=== PATIENT | male | born 1960 | race African-American/Black ===

== ENCOUNTER 2018-11-18 20:34 | Inpatient (IN) | payer MEDICARE, OTHER ==
[~2018-11-18 20:34] MED LIST: BENZ1TAB70 PO; BUPR150T2 PO; ENAL10TA18 PO; FLUP5 PO; METF-444 PO; NIAC500T76 PO; OMEP20CA10 PO; PIOG15TA6 PO; RISP3TAB6 PO; TIOT185 IH; VENTOLIN
[2018-11-19 01:30] VITALS: BP 104/67
[2018-11-19] MEDS ORDERED: PNEUMOCOCCAL VACCINE POLYVALENT 0.5 ML VIAL [PPSV23] IM ONE (03:15)
[2018-11-19] MEDS ORDERED: DOCUSATE SODIUM 100 MG CAPSULE PO PRN (07:00)
[2018-11-19] MEDS ORDERED: CloNIDine HCL 0.1 MG TABLET PO PRN (07:00)
[2018-11-19] MEDS ORDERED: ALBUTEROL SULFATE HFA 90 MCG/PUFF 8 GM INHALER IH PRN (07:00)
[2018-11-19] MEDS ORDERED: GuaiFENesin/D-METHORPHAN [SUGAR-FREE] 200-20MG/10 ML SYRUP UDCUP PO PRN (07:00)
[2018-11-19] MEDS ORDERED: MAGNESIUM HYDROXIDE SUSPENSION 30 ML UDCUP PO PRN (07:00)
[2018-11-19] MEDS ORDERED: MAG HYDROX/AL HYDROX/SIMETH ES 30 ML SUSPENSION UDCUP PO PRN (07:00)
[2018-11-19] MEDS ORDERED: IBUPROFEN 400 MG TABLET PO PRN (07:00)
[2018-11-19] MEDS ORDERED: PETROLATUM,WHITE 28 GM JELLY TP PRN (07:00)
[2018-11-19] MEDS ORDERED: ACETAMINOPHEN 325 MG TABLET PO PRN (07:00)
[2018-11-19] MEDS ORDERED: NICOTINE 14 MG/24 HOUR PATCH TD PRN (07:00)
[2018-11-19] MEDS ORDERED: ONDANSETRON HCL 4 MG TABLET PO PRN (07:00)
[2018-11-19] MEDS ORDERED: LOPERAMIDE HCL 2 MG CAPSULE PO PRN (07:00)
[2018-11-19 08:15] VITALS: BP 122/83
[2018-11-19] MEDS: TIOTROPIUM BROMIDE 18 MCG/INH HANDIHALER [5] IH SCH (09:00)
[2018-11-19] MEDS: AmLODIPine BESYLATE 10 MG TABLET PO SCH (09:42)
[2018-11-19] MEDS ORDERED: BuPROPion HCL XL 150 MG ER TABLET PO ONE (11:45)
[2018-11-19 16:44] VITALS: BP 101/63
[2018-11-19] MEDS: BENZTROPINE MESYLATE 1 MG TABLET PO SCH (17:01)
[2018-11-19] MEDS: MetFORMIN HCL 500 MG TABLET PO SCH (17:01)
[2018-11-19] MEDS: RisperiDONE 3 MG TABLET PO SCH (17:01)
[2018-11-19] MEDS: PIOGLITAZONE HCL 15 MG TABLET PO SCH (20:38)
[2018-11-19] MEDS: OMEPRAZOLE 20 MG CAPSULE PO SCH (20:39)
[2018-11-20 01:23] VITALS: BP 101/74
[2018-11-20 06:39] LABS: GLUCOMETER DEV NAME(LOC) BV3N.; GLUCOSE,POINT OF CARE 106 MG/DL (70-110)
[2018-11-20] MEDS: MetFORMIN HCL 500 MG TABLET PO SCH ×2 (06:52→16:43)
[2018-11-20 08:09] VITALS: BP 129/82
[2018-11-20 08:33] LABS: BASOPHILS % (AUTO) 0.7 % (0.0-2.0); HEMATOCRIT 53.4 % (41-53); HEMOGLOBIN 18.4 g/dL (13.5-17.5); LYMPHOCYTES # (AUTO) 2.5 K/uL (1.0-4.8); LYMPHOCYTES % (AUTO) 46.2 % (22.0-44.0); MEAN CORPUSCULAR HEMOGLOBIN 31.2 pg (26.0-34.0); MEAN CORPUSCULAR HGB CONC 34.5 G/dL (31.0-37.0); MEAN CORPUSCULAR VOLUME 90 fL (80-100); MONOCYTES # (AUTO) 0.6 K/uL (0.1-1.0); MONOCYTES % (AUTO) 10.9 % (2.0-9.0); NEUTROPHILS # (AUTO) 2.1 K/uL (1.8-7.7); NEUTROPHILS % (AUTO) 40.2 % (40.0-70.0); PLATELET COUNT (AUTO) 216 K/uL (150-450); RED BLOOD CELL COUNT(AUTO) 5.91 MIL/uL (4.50-5.90); RED CELL DISTRIBUTION WIDTH 13.2 % (11.5-14.5)
[2018-11-20 08:55] LABS: HEMOGLOBIN A1C 6.9 % (4.5-6.2)
[2018-11-20] MEDS: BuPROPion HCL XL 150 MG ER TABLET PO SCH (09:01)
[2018-11-20] MEDS: AmLODIPine BESYLATE 10 MG TABLET PO SCH (09:01)
[2018-11-20] MEDS: BENZTROPINE MESYLATE 1 MG TABLET PO SCH ×2 (09:01→16:43)
[2018-11-20] MEDS: TIOTROPIUM BROMIDE 18 MCG/INH HANDIHALER [5] IH SCH (09:02)
[2018-11-20] MEDS: RisperiDONE 3 MG TABLET PO SCH ×2 (09:02→16:43)
[2018-11-20 09:09] LABS: ALANINE AMINOTRANSFERASE 43 U/L (12-78); ALBUMIN 3.7 g/dL (3.4-5.0); ALKALINE PHOSPHATASE 60 U/L (46-116); ANION GAP 9 mmol/L (8-16); ASPARTATE AMINOTRANSFERASE 37 U/L (15-37); BILIRUBIN,TOTAL 0.5 mg/dL (0.1-1.0); CALCIUM, TOTAL 9.3 mg/dL (8.8-10.5); CARBON DIOXIDE 26 mmol/L (22-29); CHLORIDE 103 mmol/L (98-107); CHOL/HDL RATIO 4.1 (4.2-7.3); CHOLESTEROL 147 mg/dL (131-200); CREATININE 0.93 mg/dL (0.60-1.30); FREE T4 (FREE THYROXINE) 1.24 ng/dL (0.76-1.46); GLOMERULAR FILTR. RATE CALC > 60 mL/min (>60); GLUCOSE,RANDOM 99 mg/dL (70-110); HDL CHOLESTEROL 36 mg/dL (40-60); LDL CHOL (CALC.) 81 mg/dL (0-130); POTASSIUM 4.4 mmol/L (3.5-5.1); SODIUM SERUM 138 mmol/L (136-145); THYROID STIMULATING HORMONE 1.55 uIU/mL (0.36-3.74); TOTAL PROTEIN, SERUM 7.4 g/dL (6.4-8.2); TRIGLYCERIDES 151 mg/dL (15-150); UREA NITROGEN, BLOOD 13 mg/dL (7-18)
[2018-11-20 16:10] VITALS: BP 105/67
[2018-11-20] MEDS: HALOPERIDOL 5 MG TABLET PO PRN (16:44)
[2018-11-20] MEDS: LORazepam 2 MG TABLET PO PRN (16:44)
[2018-11-20] MEDS: PIOGLITAZONE HCL 15 MG TABLET PO SCH (21:00)
[2018-11-20] MEDS: ZOLPIDEM TARTRATE 10 MG TABLET PO PRN (21:03)
[2018-11-20] MEDS: OMEPRAZOLE 20 MG CAPSULE PO SCH (21:03)
[2018-11-21 05:29] VITALS: BP 112/75
[2018-11-21] MEDS: MetFORMIN HCL 500 MG TABLET PO SCH ×2 (06:36→16:21)
[2018-11-21] MEDS: TIOTROPIUM BROMIDE 18 MCG/INH HANDIHALER [5] IH SCH (08:26)
[2018-11-21] MEDS: RisperiDONE 3 MG TABLET PO SCH ×2 (08:26→16:21)
[2018-11-21] MEDS: BuPROPion HCL XL 150 MG ER TABLET PO SCH (08:26)
[2018-11-21] MEDS: BENZTROPINE MESYLATE 1 MG TABLET PO SCH ×2 (08:26→16:21)
[2018-11-21] MEDS: AmLODIPine BESYLATE 10 MG TABLET PO SCH (08:26)
[2018-11-21] MEDS: LORazepam 2 MG TABLET PO PRN (08:29)
[2018-11-21 08:31] VITALS: BP 120/85
[2018-11-21 16:28] VITALS: BP 110/71
[2018-11-21] MEDS: OMEPRAZOLE 20 MG CAPSULE PO SCH (20:33)
[2018-11-21] MEDS: PIOGLITAZONE HCL 15 MG TABLET PO SCH (20:33)
[2018-11-22 02:12] VITALS: BP 125/76
[2018-11-22] MEDS: MetFORMIN HCL 500 MG TABLET PO SCH ×2 (06:21→17:06)
[2018-11-22 08:05] LABS: BASOPHILS % (AUTO) 0.8 % (0.0-2.0); EOSINOPHILS % (AUTO) 1.5 % (1.0-6.0); HEMATOCRIT 51.9 % (41-53); HEMOGLOBIN 18.1 g/dL (13.5-17.5); LYMPHOCYTES % (AUTO) 39.5 % (22.0-44.0); MEAN CORPUSCULAR HEMOGLOBIN 31.2 pg (26.0-34.0); MEAN CORPUSCULAR HGB CONC 34.9 G/dL (31.0-37.0); MEAN CORPUSCULAR VOLUME 89 fL (80-100); MONOCYTES # (AUTO) 0.4 K/uL (0.1-1.0); MONOCYTES % (AUTO) 8.6 % (2.0-9.0); NEUTROPHILS # (AUTO) 2.5 K/uL (1.8-7.7); NEUTROPHILS % (AUTO) 49.6 % (40.0-70.0); PLATELET COUNT (AUTO) 243 K/uL (150-450); RED CELL DISTRIBUTION WIDTH 13.3 % (11.5-14.5)
[2018-11-22 08:29] VITALS: BP 129/78
[2018-11-22] MEDS: TIOTROPIUM BROMIDE 18 MCG/INH HANDIHALER [5] IH SCH (08:56)
[2018-11-22] MEDS: RisperiDONE 3 MG TABLET PO SCH ×2 (08:56→17:06)
[2018-11-22] MEDS: BENZTROPINE MESYLATE 1 MG TABLET PO SCH ×2 (08:57→17:06)
[2018-11-22] MEDS: BuPROPion HCL XL 150 MG ER TABLET PO SCH (08:57)
[2018-11-22] MEDS: AmLODIPine BESYLATE 10 MG TABLET PO SCH (08:57)
[2018-11-22 16:39] VITALS: BP 109/70
[2018-11-22] MEDS: HALOPERIDOL 5 MG TABLET PO PRN (17:05)
[2018-11-22] MEDS: LORazepam 2 MG TABLET PO PRN (17:06)
[2018-11-22] MEDS: PIOGLITAZONE HCL 15 MG TABLET PO SCH (20:20)
[2018-11-22] MEDS: ZOLPIDEM TARTRATE 10 MG TABLET PO PRN (20:20)
[2018-11-22] MEDS: OMEPRAZOLE 20 MG CAPSULE PO SCH (20:20)
[2018-11-23 06:17] VITALS: BP 129/80
[2018-11-23] MEDS: MetFORMIN HCL 500 MG TABLET PO SCH ×2 (06:30→16:41)
[2018-11-23 08:14] VITALS: BP 117/83
[2018-11-23] MEDS: AmLODIPine BESYLATE 10 MG TABLET PO SCH (08:23)
[2018-11-23] MEDS: BuPROPion HCL XL 150 MG ER TABLET PO SCH (08:23)
[2018-11-23] MEDS: RisperiDONE 3 MG TABLET PO SCH ×2 (08:23→16:41)
[2018-11-23] MEDS: BENZTROPINE MESYLATE 1 MG TABLET PO SCH ×2 (08:23→16:41)
[2018-11-23] MEDS: TIOTROPIUM BROMIDE 18 MCG/INH HANDIHALER [5] IH SCH (08:24)
[2018-11-23 16:00] VITALS: BP 114/80
[2018-11-23] MEDS: LORazepam 2 MG TABLET PO PRN (16:41)
[2018-11-23] MEDS: HALOPERIDOL 5 MG TABLET PO PRN (16:41)
[2018-11-23] MEDS: PIOGLITAZONE HCL 15 MG TABLET PO SCH (20:28)
[2018-11-23] MEDS: ZOLPIDEM TARTRATE 10 MG TABLET PO PRN (20:28)
[2018-11-23] MEDS: OMEPRAZOLE 20 MG CAPSULE PO SCH (20:28)
[2018-11-24 06:03] VITALS: BP 116/73
[2018-11-24] MEDS: MetFORMIN HCL 500 MG TABLET PO SCH ×2 (06:23→16:25)
[2018-11-24 08:13] LABS: BASOPHILS % (AUTO) 0.5 % (0.0-2.0); EOSINOPHILS % (AUTO) 1.7 % (1.0-6.0); HEMATOCRIT 53.7 % (41-53); HEMOGLOBIN 18.2 g/dL (13.5-17.5); LYMPHOCYTES % (AUTO) 39.7 % (22.0-44.0); MEAN CORPUSCULAR HEMOGLOBIN 30.8 pg (26.0-34.0); MEAN CORPUSCULAR VOLUME 91 fL (80-100); MONOCYTES # (AUTO) 0.6 K/uL (0.1-1.0); MONOCYTES % (AUTO) 12.6 % (2.0-9.0); NEUTROPHILS # (AUTO) 2.3 K/uL (1.8-7.7); NEUTROPHILS % (AUTO) 45.5 % (40.0-70.0); PLATELET COUNT (AUTO) 237 K/uL (150-450); RED BLOOD CELL COUNT(AUTO) 5.93 MIL/uL (4.50-5.90); RED CELL DISTRIBUTION WIDTH 13.2 % (11.5-14.5)
[2018-11-24 08:18] VITALS: BP 133/77
[2018-11-24 08:24] LABS: APPEARANCE,URINE CLEAR (CLEAR); BILIRUBIN,URINE NEGATIVE (NEGATIVE); GLUCOSE, URINE (UA) NEGATIVE (NEGATIVE); KETONES,URINE NEGATIVE (NEGATIVE); LEUKOCYTE ESTERASE ,URINE NEGATIVE (NEGATIVE); NITRATE,URINE NEGATIVE (NEGATIVE); OCCULT BLOOD,URINE NEGATIVE (NEGATIVE); PROTEIN,URINE NEGATIVE (NEGATIVE); UROBILINOGEN,URINE 0.2 mg/dL (<=1.0)
[2018-11-24] MEDS: TIOTROPIUM BROMIDE 18 MCG/INH HANDIHALER [5] IH SCH (08:25)
[2018-11-24] MEDS: BENZTROPINE MESYLATE 1 MG TABLET PO SCH ×2 (08:26→16:25)
[2018-11-24] MEDS: BuPROPion HCL XL 150 MG ER TABLET PO SCH (08:26)
[2018-11-24] MEDS: RisperiDONE 3 MG TABLET PO SCH ×2 (08:26→16:25)
[2018-11-24] MEDS: AmLODIPine BESYLATE 10 MG TABLET PO SCH (08:26)
[2018-11-24 08:34] LABS: ALANINE AMINOTRANSFERASE 50 U/L (12-78); ALBUMIN 3.7 g/dL (3.4-5.0); ALKALINE PHOSPHATASE 66 U/L (46-116); ANION GAP 8 mmol/L (8-16); ASPARTATE AMINOTRANSFERASE 27 U/L (15-37); BILIRUBIN,TOTAL 0.5 mg/dL (0.1-1.0); CALCIUM, TOTAL 9.2 mg/dL (8.8-10.5); CARBON DIOXIDE 27 mmol/L (22-29); CHLORIDE 103 mmol/L (98-107); CREATININE 0.98 mg/dL (0.60-1.30); GLOMERULAR FILTR. RATE CALC > 60 mL/min (>60); GLUCOSE,RANDOM 105 mg/dL (70-110); POTASSIUM 4.7 mmol/L (3.5-5.1); SODIUM SERUM 138 mmol/L (136-145); UREA NITROGEN, BLOOD 15 mg/dL (7-18)
[2018-11-24 16:00] VITALS: BP 118/70
[2018-11-24] MEDS: LORazepam 2 MG TABLET PO PRN (16:25)
[2018-11-24] MEDS: DIVALPROEX SODIUM 500 MG ER TABLET PO SCH (16:25)
[2018-11-24] MEDS: PIOGLITAZONE HCL 15 MG TABLET PO SCH (20:27)
[2018-11-24] MEDS: OMEPRAZOLE 20 MG CAPSULE PO SCH (20:27)
[2018-11-24] MEDS: ZOLPIDEM TARTRATE 10 MG TABLET PO PRN (20:27)
[2018-11-25 05:32] VITALS: BP 108/75
[2018-11-25] MEDS: MetFORMIN HCL 500 MG TABLET PO SCH ×2 (06:53→16:26)
[2018-11-25 08:17] VITALS: BP 122/67
[2018-11-25] MEDS: AmLODIPine BESYLATE 10 MG TABLET PO SCH (08:51)
[2018-11-25] MEDS: BENZTROPINE MESYLATE 1 MG TABLET PO SCH ×2 (08:51→16:26)
[2018-11-25] MEDS: RisperiDONE 3 MG TABLET PO SCH ×2 (08:51→16:26)
[2018-11-25] MEDS: BuPROPion HCL XL 150 MG ER TABLET PO SCH (08:51)
[2018-11-25] MEDS: DIVALPROEX SODIUM 500 MG ER TABLET PO SCH ×2 (08:51→16:26)
[2018-11-25] MEDS: TIOTROPIUM BROMIDE 18 MCG/INH HANDIHALER [5] IH SCH (09:00)
[2018-11-25 16:09] VITALS: BP 105/74
[2018-11-25] MEDS: PIOGLITAZONE HCL 15 MG TABLET PO SCH (20:16)
[2018-11-25] MEDS: OMEPRAZOLE 20 MG CAPSULE PO SCH (20:16)
[2018-11-26 02:50] VITALS: BP 118/77
[2018-11-26] MEDS: MetFORMIN HCL 500 MG TABLET PO SCH ×2 (07:13→16:06)
[2018-11-26 08:00] VITALS: BP 115/82
[2018-11-26] MEDS: BuPROPion HCL XL 150 MG ER TABLET PO SCH (08:35)
[2018-11-26] MEDS: DIVALPROEX SODIUM 500 MG ER TABLET PO SCH ×2 (08:35→16:07)
[2018-11-26] MEDS: BENZTROPINE MESYLATE 1 MG TABLET PO SCH ×2 (08:35→16:06)
[2018-11-26] MEDS: AmLODIPine BESYLATE 10 MG TABLET PO SCH (08:36)
[2018-11-26] MEDS: RisperiDONE 3 MG TABLET PO SCH ×2 (08:36→16:06)
[2018-11-26] MEDS: TIOTROPIUM BROMIDE 18 MCG/INH HANDIHALER [5] IH SCH (09:27)
[2018-11-26 17:00] VITALS: BP 114/76
[2018-11-26] MEDS: PIOGLITAZONE HCL 15 MG TABLET PO SCH (20:34)
[2018-11-26] MEDS: OMEPRAZOLE 20 MG CAPSULE PO SCH (20:34)
[2018-11-27 04:15] VITALS: BP 117/73
[2018-11-27] MEDS: MetFORMIN HCL 500 MG TABLET PO SCH ×2 (06:46→17:47)
[2018-11-27 07:20] LABS: BASOPHILS % (AUTO) 1.1 % (0.0-2.0); EOSINOPHILS % (AUTO) 2.8 % (1.0-6.0); HEMATOCRIT 52.9 % (41-53); LYMPHOCYTES # (AUTO) 2.2 K/uL (1.0-4.8); LYMPHOCYTES % (AUTO) 37.2 % (22.0-44.0); MEAN CORPUSCULAR VOLUME 91 fL (80-100); MONOCYTES # (AUTO) 0.7 K/uL (0.1-1.0); MONOCYTES % (AUTO) 11.2 % (2.0-9.0); NEUTROPHILS # (AUTO) 2.9 K/uL (1.8-7.7); NEUTROPHILS % (AUTO) 47.7 % (40.0-70.0); PLATELET COUNT (AUTO) 221 K/uL (150-450); RED CELL DISTRIBUTION WIDTH 13.2 % (11.5-14.5)
[2018-11-27 08:11] LABS: ALANINE AMINOTRANSFERASE 40 U/L (12-78); ALBUMIN 3.4 g/dL (3.4-5.0); ALKALINE PHOSPHATASE 79 U/L (46-116); ANION GAP 13 mmol/L (8-16); ASPARTATE AMINOTRANSFERASE 19 U/L (15-37); BILIRUBIN,TOTAL 0.4 mg/dL (0.1-1.0); CALCIUM, TOTAL 9.4 mg/dL (8.8-10.5); CARBON DIOXIDE 23 mmol/L (22-29); CHLORIDE 103 mmol/L (98-107); CREATININE 0.91 mg/dL (0.60-1.30); GLOMERULAR FILTR. RATE CALC > 60 mL/min (>60); GLUCOSE,RANDOM 122 mg/dL (70-110); POTASSIUM 4.4 mmol/L (3.5-5.1); SODIUM SERUM 139 mmol/L (136-145); TOTAL PROTEIN, SERUM 6.7 g/dL (6.4-8.2); UREA NITROGEN, BLOOD 16 mg/dL (7-18); VALPROIC ACID 61 mcg/mL (50-100)
[2018-11-27 08:30] VITALS: BP 121/86
[2018-11-27] MEDS: BENZTROPINE MESYLATE 1 MG TABLET PO SCH ×2 (08:52→17:47)
[2018-11-27] MEDS: AmLODIPine BESYLATE 10 MG TABLET PO SCH (08:52)
[2018-11-27] MEDS: RisperiDONE 3 MG TABLET PO SCH ×2 (08:52→17:47)
[2018-11-27] MEDS: DIVALPROEX SODIUM 500 MG ER TABLET PO SCH ×2 (08:52→17:47)
[2018-11-27] MEDS: BuPROPion HCL XL 150 MG ER TABLET PO SCH (08:52)
[2018-11-27] MEDS: TIOTROPIUM BROMIDE 18 MCG/INH HANDIHALER [5] IH SCH (08:53)
[2018-11-27 16:18] VITALS: BP 109/69
[2018-11-27] MEDS: PIOGLITAZONE HCL 15 MG TABLET PO SCH (21:27)
[2018-11-27] MEDS: OMEPRAZOLE 20 MG CAPSULE PO SCH (21:27)
[2018-11-28 00:08] VITALS: BP 125/76
[2018-11-28] MEDS: MetFORMIN HCL 500 MG TABLET PO SCH ×2 (06:46→17:13)
[2018-11-28 08:20] VITALS: BP 118/86
[2018-11-28] MEDS: RisperiDONE 3 MG TABLET PO SCH ×2 (08:29→17:12)
[2018-11-28] MEDS: BuPROPion HCL XL 150 MG ER TABLET PO SCH (08:29)
[2018-11-28] MEDS: DIVALPROEX SODIUM 500 MG ER TABLET PO SCH ×2 (08:29→17:13)
[2018-11-28] MEDS: BENZTROPINE MESYLATE 1 MG TABLET PO SCH ×2 (08:29→17:13)
[2018-11-28] MEDS: AmLODIPine BESYLATE 10 MG TABLET PO SCH (08:29)
[2018-11-28] MEDS: TIOTROPIUM BROMIDE 18 MCG/INH HANDIHALER [5] IH SCH (08:32)
[2018-11-28 16:50] VITALS: BP 120/81
[2018-11-28] MEDS: PIOGLITAZONE HCL 15 MG TABLET PO SCH (20:55)
[2018-11-28] MEDS: OMEPRAZOLE 20 MG CAPSULE PO SCH (20:55)
[2018-11-29 06:57] VITALS: BP 124/78
[2018-11-29] MEDS: MetFORMIN HCL 500 MG TABLET PO SCH (07:02)
[2018-11-29 07:18] LABS: BASOPHILS % (AUTO) 1.3 % (0.0-2.0); EOSINOPHILS % (AUTO) 2.5 % (1.0-6.0); HEMATOCRIT 53.7 % (41-53); HEMOGLOBIN 18.3 g/dL (13.5-17.5); LYMPHOCYTES # (AUTO) 2.5 K/uL (1.0-4.8); MEAN CORPUSCULAR HEMOGLOBIN 31.2 pg (26.0-34.0); MEAN CORPUSCULAR HGB CONC 34.1 G/dL (31.0-37.0); MEAN CORPUSCULAR VOLUME 91 fL (80-100); MONOCYTES # (AUTO) 0.7 K/uL (0.1-1.0); MONOCYTES % (AUTO) 11.4 % (2.0-9.0); NEUTROPHILS # (AUTO) 2.3 K/uL (1.8-7.7); NEUTROPHILS % (AUTO) 40.8 % (40.0-70.0); PLATELET COUNT (AUTO) 221 K/uL (150-450); RED BLOOD CELL COUNT(AUTO) 5.88 MIL/uL (4.50-5.90); RED CELL DISTRIBUTION WIDTH 13.2 % (11.5-14.5)
[2018-11-29 08:00] VITALS: BP 154/79
[2018-11-29] MEDS: AmLODIPine BESYLATE 10 MG TABLET PO SCH (10:21)
[2018-11-29] MEDS: BuPROPion HCL XL 150 MG ER TABLET PO SCH (10:21)
[2018-11-29] MEDS: BENZTROPINE MESYLATE 1 MG TABLET PO SCH (10:21)
[2018-11-29] MEDS: RisperiDONE 3 MG TABLET PO SCH (10:21)
[2018-11-29] MEDS: DIVALPROEX SODIUM 500 MG ER TABLET PO SCH (10:21)
[2018-11-29] MEDS: TIOTROPIUM BROMIDE 18 MCG/INH HANDIHALER [5] IH SCH (11:02)
[2018-11-29] MEDS ORDERED: AMLO-512 PO (12:39)
[2018-11-29] MEDS ORDERED: DIVA500T52 PO (12:39)
[2018-11-29] MEDS ORDERED: PIOG15TA6 PO (12:39)
[2018-11-29] MEDS ORDERED: BUPR-93 PO (12:39)
== END 2018-11-29 15:10 | disposition home or self-care (01) | DRG 885 ==
LOC: B3A 11-19 00:30 → B2S 11-24 21:05
PROVIDERS: ADMIT Psychiatry & Neurology Psychiatry; ATTEND Psychiatry & Neurology Psychiatry
DX: F20.0 Paranoid schizophrenia (principal); I10 Essential (primary) hypertension; J45.909 Unspecified asthma, uncomplicated; K21.9 Gastro-esophageal reflux disease without esophagitis; E78.5 Hyperlipidemia, unspecified; E11.9 Type 2 diabetes mellitus without complications; D75.1 Secondary polycythemia; Z79.899 Other long term (current) drug therapy
CPT/HCPCS: 83036; 84439; 84443; 90732